=== PATIENT | male | born 1960 | race Caucasian/White ===

== ENCOUNTER 2024-06-05 08:24 | Outpatient (CLI) | payer BC ==
[2024-06-05] MEDS ORDERED: Iopamidol 370 76% 100 ML VIAL ONE (09:55)
== END 2024-06-05 08:25 | disposition home or self-care (01) ==
LOC: CSHCT 08:24
PROVIDERS: ATTEND Internal Medicine
DX: K25.9 Gastric ulcer, unspecified as acute or chronic, without hemorrhage or perforation (principal); R16.0 Hepatomegaly, not elsewhere classified
CPT/HCPCS: 74177; 82565

== ENCOUNTER 2024-06-19 13:55 | Outpatient (CLI) | payer BC | END 2024-06-19 13:56 | disposition home or self-care (01) | LOC: CSHULT 13:55 | PROVIDERS: ATTEND Internal Medicine Hematology & Oncology | DX: C83.30 Diffuse large B-cell lymphoma, unspecified site (principal); R93.1 Abnormal findings on diagnostic imaging of heart and coronary circulation | CPT/HCPCS: 78815; 93306; A9552 ==